=== PATIENT | female | born 1990 | race Caucasian/White ===

== ENCOUNTER 2022-08-21 06:48 | Emergency (ER) | payer MEDICAID ==
[~2022-08-21] VITALS: Ht 157.5 cm; Wt 84.1 kg
[~2022-08-21 06:48] MED LIST: DSS100 PO; IBUP-1493 PO; LEVO50 PO; PREN1TAB80 PO; [UNRECOGNIZED DRUG - REMARK]
[2022-08-21 08:00] LABS: BASOPHILS % (AUTO) 0.3 % (0.0-2.0); EOSINOPHILS % (AUTO) 1.1 % (1.0-6.0); HEMOGLOBIN 14.2 g/dL (12.0-16.0); LYMPHOCYTES # (AUTO) 1.5 K/uL (1.0-4.8); LYMPHOCYTES % (AUTO) 23.3 % (22.0-44.0); MEAN CORPUSCULAR HEMOGLOBIN 31.2 pg (26.0-34.0); MEAN CORPUSCULAR HGB CONC 33.7 G/dL (31.0-37.0); MEAN CORPUSCULAR VOLUME 93 fL (80-100); MONOCYTES # (AUTO) 0.4 K/uL (0.1-1.0); MONOCYTES % (AUTO) 6.3 % (2.0-9.0); NEUTROPHILS # (AUTO) 4.4 K/uL (1.8-7.7); PLATELET COUNT (AUTO) 251 K/uL (150-450); RED BLOOD CELL COUNT(AUTO) 4.54 MIL/uL (4.00-5.20); RED CELL DISTRIBUTION WIDTH 13.1 % (11.5-14.5)
[2022-08-21 08:01] LABS: APPEARANCE,URINE CLEAR (CLEAR); BILIRUBIN,URINE NEGATIVE (NEGATIVE); GLUCOSE, URINE (UA) NEGATIVE (NEGATIVE); KETONES,URINE NEGATIVE (NEGATIVE); LEUKOCYTE ESTERASE ,URINE NEGATIVE (NEGATIVE); NITRATE,URINE NEGATIVE (NEGATIVE); OCCULT BLOOD,URINE NEGATIVE (NEGATIVE); PH,URINE 5.5 (5.0-8.0); PROTEIN,URINE NEGATIVE (NEGATIVE); SPECIFIC GRAVITIY, URINE 1.016 (1.003-1.030); UROBILINOGEN,URINE <=1.0 mg/dL (<=1.0)
[2022-08-21 08:05] LABS: ANION GAP 8 mmol/L (8-16); CALCIUM, TOTAL 9.1 mg/dL (8.8-10.5); CARBON DIOXIDE 29 mmol/L (22-29); CHLORIDE 101 mmol/L (98-107); CREATININE 0.62 mg/dL (0.60-1.30); GLOMERULAR FILTR. RATE CALC > 60 mL/min (>60); GLUCOSE,RANDOM 104 mg/dL (70-110); POTASSIUM 4.1 mmol/L (3.5-5.1); SODIUM SERUM 138 mmol/L (136-145)
[2022-08-21 08:10] LABS: ALANINE AMINOTRANSFERASE 22 U/L (12-78); ALBUMIN 3.9 g/dL (3.4-5.0); ALKALINE PHOSPHATASE 114 U/L (46-116); ASPARTATE AMINOTRANSFERASE 16 U/L (15-37); BILIRUBIN,TOTAL 0.3 mg/dL (0.1-1.0); TOTAL PROTEIN, SERUM 7.9 g/dL (6.4-8.2)
[2022-08-21] MEDS ORDERED: RALTEGRAVIR 400 MG TABLET PO ONE (08:30)
[2022-08-21] MEDS ORDERED: DOXYCYCLINE HYCLATE 100 MG TABLET PO ONE (08:30)
[2022-08-21] MEDS ORDERED: EMTRICITABINE/TENOFOVIR 200-300 MG TABLET PO ONE (08:30)
[2022-08-21] MEDS ORDERED: LIDOCAINE/PF 1% 2 ML VIAL IM ONE (08:30)
[2022-08-21] MEDS ORDERED: CefTRIAXone SODIUM 1 GM/VIAL IM ONE (08:30)
[2022-08-21] MEDS ORDERED: BACITRACIN 0.9 GM PACKET OINTMENT TP ONE (08:30)
[2022-08-21] MEDS ORDERED: PENICILLIN G BENZATHINE LA 2,400,000 UNITS/4 ML SYRINGE IM ONE (08:30)
[2022-08-21 08:56] VITALS: BP 124/94
[2022-08-21] MEDS ORDERED: EMTR1TAB53 PO (08:57)
[2022-08-21] MEDS ORDERED: RALT400T PO (08:57)
[2022-08-21] MEDS ORDERED: ONDA-104 PO (08:57)
[2022-08-21] MEDS ORDERED: DOXY-354 PO (08:57)
[2022-08-21] MEDS ORDERED: METR500 PO (09:34)
[2022-08-21] MEDS ORDERED: MetroNIDAZOLE 250 MG TABLET PO ONE (09:45)
[2022-08-21 10:18] LABS: RAPID PLASMA REAGIN NONREACTIVE (NONREACTIVE)
[2022-08-23 03:07] LABS: HIV 1-2 SCREEN 4TH GEN W/RFLX Non Reactive (Non Reactive)
== END 2022-08-21 09:53 | disposition home or self-care (01) ==
LOC: EMS 06:55
DX: N76.0 Acute vaginitis (principal); A64 Unspecified sexually transmitted disease; G43.909 Migraine, unspecified, not intractable, without status migrainosus
CPT/HCPCS: 99284; 86592; 80053; 81003; 84703; 85025; 87210; 36415; 87491; 87591; 96372; 87389; J0561; J0696; J3490

== ENCOUNTER 2023-04-13 08:28 | Emergency (ER) | payer MEDICAID ==
[~2023-04-13] VITALS: Ht 157.5 cm; Wt 77.3 kg
[~2023-04-13 08:28] MED LIST changes: +DOXY-354 PO; -DSS100 PO; +EMTR1TAB53 PO; -IBUP-1493 PO; -LEVO50 PO; +METR500 PO; +ONDA-104 PO; -PREN1TAB80 PO; +RALT400T PO; -[UNRECOGNIZED DRUG - REMARK]
[2023-04-13 08:30] VITALS: BP 138/79; PULSE 123; RESP 16; TEMP 98.2
[2023-04-13 09:17] LABS: BASOPHILS % (AUTO) 0.2 % (0.0-2.0); EOSINOPHILS % (AUTO) 0 % (1.0-6.0); HEMATOCRIT 38.6 % (36-46); HEMOGLOBIN 13.1 g/dL (12.0-16.0); LYMPHOCYTES # (AUTO) 0.4 K/uL (1.0-4.8); LYMPHOCYTES % (AUTO) 12.4 % (22.0-44.0); MEAN CORPUSCULAR HEMOGLOBIN 30.3 pg (26.0-34.0); MEAN CORPUSCULAR VOLUME 89 fL (80-100); MONOCYTES # (AUTO) 0.2 K/uL (0.1-1.0); MONOCYTES % (AUTO) 7.4 % (2.0-9.0); NEUTROPHILS # (AUTO) 2.6 K/uL (1.8-7.7); PLATELET COUNT (AUTO) 128 K/uL (150-450); RED BLOOD CELL COUNT(AUTO) 4.34 MIL/uL (4.00-5.20); RED CELL DISTRIBUTION WIDTH 14.6 % (11.5-14.5); WHITE BLOOD COUNT (AUTO) 3.2 K/uL (4.5-11.0)
[2023-04-13 09:28] LABS: ANION GAP 10 mmol/L (8-16); CALCIUM, TOTAL 8.5 mg/dL (8.8-10.5); CARBON DIOXIDE 24 mmol/L (22-29); CHLORIDE 101 mmol/L (98-107); CREATININE 0.71 mg/dL (0.60-1.30); GLOMERULAR FILTR. RATE CALC > 60 mL/min (>60); GLUCOSE,RANDOM 118 mg/dL (70-110); POTASSIUM 3.8 mmol/L (3.5-5.1); SODIUM SERUM 135 mmol/L (136-145); UREA NITROGEN, BLOOD 6 mg/dL (7-18)
[2023-04-13 09:33] LABS: ALANINE AMINOTRANSFERASE 87 U/L (12-78); ALBUMIN 2.5 g/dL (3.4-5.0); ALKALINE PHOSPHATASE 249 U/L (46-116); ASPARTATE AMINOTRANSFERASE 98 U/L (15-37); BILIRUBIN,TOTAL 0.8 mg/dL (0.1-1.0); TOTAL PROTEIN, SERUM 7.1 g/dL (6.4-8.2)
[2023-04-13 09:55] LABS: APPEARANCE,URINE HAZY (CLEAR); BILIRUBIN,URINE NEGATIVE (NEGATIVE); COLOR,URINE YELLOW (YELLOW); GLUCOSE, URINE (UA) NEGATIVE (NEGATIVE); KETONES,URINE NEGATIVE (NEGATIVE); LEUKOCYTE ESTERASE ,URINE LARGE (NEGATIVE); NITRATE,URINE NEGATIVE (NEGATIVE); OCCULT BLOOD,URINE LARGE (NEGATIVE); PROTEIN,URINE 30-70 mg/dL (NEGATIVE); SPECIFIC GRAVITIY, URINE 1.016 (1.003-1.030); UROBILINOGEN,URINE <=1.0 mg/dL (<=1.0)
[2023-04-13 10:03] LABS: BACTERIA,URINE Few /HPF (None Seen)
[2023-04-13 10:04] LABS: SQUAMOUS EPITHELIAL CELL,UR Few /LPF (None Seen)
[2023-04-13 10:05] LABS: HCG,QUAL URINE NEGATIVE (NEGATIVE)
[2023-04-13] MEDS ORDERED: ACETAMINOPHEN 500 MG TABLET PO ONE (10:30)
[2023-04-13] MEDS ORDERED: ONDANSETRON HCL 4 MG TABLET PO ONE (10:30)
[2023-04-13] MEDS ORDERED: CEPHALEXIN MONOHYDRATE 500 MG CAPSULE PO ONE (10:30)
[2023-04-13] MEDS ORDERED: KETOROLAC TROMETHAMINE 60 MG/2 ML VIAL IM ONE (10:30)
[2023-04-13] MEDS ORDERED: IBUP-1554 PO (11:48)
[2023-04-13] MEDS ORDERED: PHEN-674 PO (11:48)
[2023-04-13] MEDS ORDERED: CEPH-558 PO (11:48)
[2023-04-13] MEDS ORDERED: ACET-66 PO (11:48)
== END 2023-04-13 11:57 | disposition home or self-care (01) ==
LOC: EMS 08:33
DX: N39.0 Urinary tract infection, site not specified (principal); K76.0 Fatty (change of) liver, not elsewhere classified; R51.9 Headache, unspecified
CPT/HCPCS: 99285; 76705; 80053; 81001; 84703; 85025; 36415; 87086; 87186; 96372; J1885; Q0162

== ENCOUNTER 2024-06-29 18:33 | Emergency (ER) | payer OTHER, MEDICAID ==
[~2024-06-29] VITALS: Ht 157.5 cm; Wt 86.4 kg
[~2024-06-29 18:33] MED LIST changes: +ACET-66 PO; +CEPH-558 PO; -DOXY-354 PO; -EMTR1TAB53 PO; +IBUP-1554 PO; -METR500 PO; -ONDA-104 PO; +PHEN-674 PO; -RALT400T PO
[2024-06-29 18:34] VITALS: TEMP 98.3
[2024-06-29] MEDS: PredniSONE 20 MG TABLET PO ONE (21:34)
[2024-06-29] MEDS ORDERED: PRED-554 PO (22:01)
[2024-06-29 22:13] VITALS: BP 145/82; PULSE 95; RESP 18; O2SAT 99
== END 2024-06-29 22:29 | disposition home or self-care (01) ==
LOC: EMS 18:33
DX: T78.40XA Allergy, unspecified, initial encounter (principal); X58.XXXA Exposure to other specified factors, initial encounter
CPT/HCPCS: 99283; J7512